=== PATIENT | male | born 1975 | race Caucasian/White ===

== ENCOUNTER 2024-04-01 16:14 | Emergency (ER) | payer OTHER, SELFPAY ==
[2024-04-01 16:32] VITALS: BP 153/85; PULSE 99; RESP 18; TEMP 36.8; O2SAT 97; BMI 34.5
--- OUTSIDE RECORDS SUMMARY | 2024-04-01 18:32 | XMS_ITS | Encounter Summary ---
[facility] Address [address] [address] Care Team Providers Care Bag Machine Helper Name Role Phone Unassigned, Provider Primary Care Provider Unava ilable Encounter Details Date Type Department Care Team (Latest Contact Info) Description 04/08/2018 Correspondence None No Primary/Referring, Phy OCC FORM Social History Tobacco Use Types Packs/Day Years Used Date Smoking Tobacco: Every Day Cigarettes Smokeless Tobacco: Never Alcohol Use Standard Drinks/Week Comments No 0 (1 standard drink = 0.6 oz pur e alcohol) Sex and Gender Information Value Date Recorded Sex Assigned at Not on file Gender Identity Not on file Sexual Orientation Not on file documented as of this encounter Plan of Treatment Not on file documented as of this encounter Visit Diagnoses Not on filedocumented in this encounter Care Teams Bag Machine Helper Relationship Specialty Start Date End Date Unassigned, Provider [address] [place] [address] PCP - General 09/22/02 documented as of this encounter
--- OUTSIDE RECORDS SUMMARY | 2024-04-01 18:32 | XMS_ITS | Encounter Summary ---
Author [facility] Address [address], [place] [address] Care Team Providers Care Store Director Name Role Phone Unassigned, Provider Primary Care Provider Unava ilable Encounter Details Date Type Department Care Team (Latest Contact Info) Description 04/08/2018 Correspondence [facility] [address] [place], [place] [address] [place] [address] Nubia Carreon MD INTIAL INJURY QUESTIONNAIRE Social History Tobacco Use Types Packs/Day Years [...] on filedocumented in this encounter Care Teams Store Director Relationship Specialty Start Date End Date Unassigned, Provider [address] [place] [address] PCP - General 09/22/02 documented as of this encounter
--- OUTSIDE RECORDS SUMMARY | 2024-04-01 18:32 | XMS_ITS | Referral Summary ---
Author Organization [facility] Address [address] [place] [address]. [place] [address] Care Team Providers Care Casino Surveillance Officer Name Role Phone No Ref-Primary, Physician Primary Care Provider Allergies No known active allergies Medications traMADol (ULTRAM) 50 mg tabletIndication s:Closed non-physeal fracture of phalanx of right great toe, unspecified phalanx, initial encounter [TRAMADOL (ULTRAM) 50 MG TABLET] Take 1 tablet (50 mg total) by mouth every 8 (eight) hours as needed for pain or severe pain (7-10). 8 tablet 0 9 Active fluticasone propionate (FLONASE) 50 mcg/actuation nasal sprayIndications :Ear fullness, left,Viral URI,Nasal congestion [FLUTICASONE PROPIONATE (FLONASE) 50 MCG/ACTUATION NASAL SPRAY] 1 spray into each nostril daily. 16 g 0 9 Active Active Problems Problem Noted Date Diagnosed Date Change in stool caliber 05/05/2022 Controlled type 2 diabetes m ellitus without complication, without long-term current use of insulin 04/11/2022 Mixed hyperlipidemia 04/11/2022 Inguinal hernia 10/30/2018 Family history of thoracic aortic aneurysm 08/30 Tobacco use 08/30/2017 Immunizations Name Administration Dates Next Due DT (PEDS <7y) 03/26/2003 Td,adult,historic,unspecified 03/26/2003 Social History Tobacco Use Types Packs/Day Years Used Date Smoking Tobacco: Every Day Smokeless Tobacco: Never Adolescent Education Answer Date Record ed Getting School Help Needed Not on file 12/16 Sex and Gender Information Value Date Recorded Sex Assigned at Not on file Legal Sex Male 3:47 PM CDT Gender Identity Not on file Sexual Orientation Not on file Last Filed Vital Signs Vital Sign Reading Time Taken Comments Blood Pressure 146/89 05/05/2022 12:22 PM TRIPPER Pulse 96 05/05/2022 12:22 PM TRIPPER Temperature 37.1 C (98.7 F) 05/05/2022 12:22 PM TRIPPER Respiratory Rate 14 05/05/2022 12:22 PM TRIPPER Oxygen Saturation 97% 05/05/2022 12:22 PM TRIPPER Inhaled Oxygen Concentration - - Weight 88 kg (194 lb 0.1 oz) 05/05/2022 12:22 PM TRIPPER Height 175.3 cm (5' 9) 10/13/2020 1:19 PM CDT Body Mass Index 28.65 10/13/2020 1:19 PM CDT Plan of Treatment Not on file Insurance [facility] [place]ADARRAMA [id number] [facility] [place] [id number] [facility] CLAIMS MANAGEMENT Care Teams Casino Surveillance Officer Relationship Specialty Start Date End Date No Ref-Primary, Physician PCP - General 10/13/20
--- OUTSIDE RECORDS SUMMARY | 2024-04-01 18:32 | XMS_ITS | Clinical Summary ---
Author Organization [facility] Address [address] [place] [address]. [place] [address] Care Team Providers Care Crop Production Advisor Name Role Phone No Ref-Primary, Physician Primary [...] Comments Blood Pressure 146/89 05/05/2022 12:22 PM RECREATION PROGRAM SPECIALIST Pulse 96 05/05/2022 12:22 PM RECREATION PROGRAM SPECIALIST Temperature 37.1 C (98.7 F) 05/05/2022 12:22 PM RECREATION PROGRAM SPECIALIST Respiratory Rate 14 05/05/2022 12:22 PM RECREATION PROGRAM SPECIALIST Oxygen Saturation 97% 05/05/2022 12:22 PM RECREATION PROGRAM SPECIALIST Inhaled Oxygen Concentration - - Weight 88 kg (194 lb 0.1 oz) 05/05/2022 12:22 PM RECREATION PROGRAM SPECIALIST Height 175.3 cm (5' 9) 10/13/2020 1:19 PM CDT Body Mass Index 28.65 10/13/2020 1:19 PM CDT Plan of Treatment Health Maintenance Due Date Last Done Comments A1C 1977 ADVANCE CARE PLANNING 1977 ANNUAL REVIEW OF HM ORDERS [address] COLONOGRAPHY 1977 DIABETIC FOOT EXAM 1977 EYE EXAM 1977 FIT 1977 FLEX SIG 1977 LIPID 1977 MICROALBUMIN 1977 sDNA (Cologuard) 1977 YEARLY PREVENTIVE VISIT 1980 COLONOSCOPY 06/01/1987 COLORECTAL CANCER SCREENING 06/01/1987 HIV SCREENING 1992 HEPATITIS C SCREENING 06/01/1995 HEPATITIS B IMMUNIZATION (1 of 3 - 19+ 3-dose series) 1996 Pneumococcal Vaccine: Pediatrics (0 to 5 Years) and At-Risk Patients (6 to 49 Years) (1 of 2 - PCV) 1996 COVID-19 Vaccine ( - 2023- season) 2023 INFLUENZA VACCINE (#1) 2023 PHQ-2 (once per calendar year) 2024 DTAP/TDAP/TD IMMUNIZATION (3 - Td or Tdap) 08/29/2027 08/28/2017, 03/26/2003, 03/26/2003, Additional history exists RSV VACCINE (1 - 1-dose 75+ series) 2052 HPV IMMUNIZATION Aged Out No longer e ligible based on patient's age to complete this topic MENINGITIS IMMUNIZATION Aged Out No l onger eligible based on patient's age to complete this topic RSV MONOCLONAL ANTIBODY Aged Out No l onger eligible based on patient's age to complete this topic Insurance [facility] [employer] Care Teams Crop Production Advisor Relationship Specialty Start Date End Date No Ref-Primary, Physician PCP - General 10/13/20
--- OUTSIDE RECORDS SUMMARY | 2024-04-01 18:32 | XMS_ITS | Encounter Summary ---
Author Organization [facility] Address [address], [place] [address] Care Team Providers Care Bingo Manager Name Role Phone Unassigned, Provider Primary Care Provider Unava ilable Encounter Details Date Type Department Care Team (Latest Contact Info) Description 04/22/2018 Correspondence [facility] [address] [place], [place] [id number] [place] [address] Nubia Carreon MD WORK HARDENING WORK CONDITIONING EVALUATION Social History Tobacco Use Types Packs/Day Years [...] on filedocumented in this encounter Care Teams Bingo Manager Relationship Specialty Start Date End Date Unassigned, Provider [address] [place] [address] PCP - General 09/22/02 documented as of this encounter
--- OUTSIDE RECORDS SUMMARY | 2024-04-01 18:32 | XMS_ITS | Clinical Summary ---
Author Organization [email or web address] Address [address], [place] [address] Care Team Providers Care Upper Cutter Name Role Phone Unassigned, Provider Primary Care Provider Unava ilable Source Comments You are receiving this document as you are listed as the primary care provider,follow-up provider, or the patient has been referred to you for consultation.This is in compliance with the Medicare and[facility] EHR Incentive Program,which states Providers who transition their patient to another setting of careor provider of care or refers their patient to another provider of care shouldprovide summary care record for each transition of care or referral. [email or web address] Allergies No known active allergies Medications Medication Sig Dispensed Refills Start Date End Date Status ibuprofen (MOTRIN) 200 MG tablet Take 200-400 mg by mouth every 4 hours as needed for Pain. Active Active Problems Problem Noted Date Diagnosed Date Tobacco use 08/30/2017 Family history of thoracic aortic aneurysm 08/30 Immunizations Name Administration Dates Next Due Td 03/25/2001 Varicella 09/22/2002(Deferred: Immune by Norma calderón) Family History Medical History Relation Name Comments Thoracic aortic aneurysm Father rup gwyne Diabetes, Type II Mother Thoracic aortic aneurysm Mother Cancer Brother 1 Suicide Brother 2 Coronary Artery Disease Sister 1 Cancer Sister 2 Relation Name Status Comments Father Mother Brother 1 Brother 2 Brother 3 Alive Brother 4 Alive Sister 1 Sister 2 Sister 3 Alive Sister 4 Alive Social History Tobacco Use Types Packs/Day Years Used Date Smoking Tobacco: Every Day Cigarettes Smokeless Tobacco: Never Tobacco Cessation:Counseling Given: Yes Alcohol Use Standard Drinks/Week Comments No 0 (1 standard drink = 0.6 oz pur e alcohol) Sex and Gender Information Value Date Recorded Sex Assigned at Not on file Gender Identity Not on file Sexual Orientation Not on file Last Filed Vital Signs Vital Sign Reading Time Taken Comments Blood Pressure 133/91 04/08/2018 3:30 PM CHILD WELFARE COUNSELOR Pulse 94 04/08/2018 3:30 PM CHILD WELFARE COUNSELOR Temperature 36.4 C (97.6 F) 08/30/2017 9:26 AM CDT Respiratory Rate 18 08/30/2017 9:26 AM CDT Oxygen Saturation 97% 10/06/2005 12:30 AM CDT Inhaled Oxygen Concentration - - Weight 93 kg (205 lb) 08/30/2017 9:26 AM CDT Height 174.6 cm (5' 8.75) 08/30/2017 9:26 AM CD T Body Mass Index 30.49 08/30/2017 9:26 AM CDT Plan of Treatment Health Maintenance Due Date Last Done Comments Colon Cancer Screening Plan Due 1977 Hep C Screening (Preventive Services) 1977 Pneumococcal (1 - PCV) 06/01/1983 HIV Screening (Preventive Services) 1993 Adult Preventive Visit 06/01/1995 HepB (1) 1996 Cholesterol 2012 COVID-19 Vaccine ( - 2023- season) 2023 Influenza (#1) 2023 Zoster/Shingles (1 of 2) 06/01/2027 DTaP/Tdap/Td (4 - Tdap) 08/29/2027 08/29/19 18, 03/26/2003, 03/26/2003, Additional history exists HepA Aged Out No longer eligi ble based on patient's age to complete this topic Hib Aged Out No longer eligi ble based on patient's age to complete this topic IPV (Polio) Aged Out No longer eligi ble based on patient's age to complete this topic MCV4 Aged Out No longer eligi ble based on patient's age to complete this topic Care Teams Upper Cutter Relationship Specialty Start Date End Date Unassigned, Provider [address] [place] [id number] PCP - General 09/22/02
--- OUTSIDE RECORDS SUMMARY | 2024-04-01 18:32 | XMS_ITS | Clinical Summary ---
Author Organization [facility] Address [place], [place] [address] Care Team Providers Care Auto Machinist Name Role Phone Bran Miller MD Primary Care Provider [phone] Ashley Gregorio PharmD Unavailable [phone] Allergies No known active allergies Medications * This document contains information received from the source organization and may not represent a complete record from that organization. aspirin (ECOTRIN) 81 mg enteric coated tabletIndications:T ype 2 diabetes mellitus without complication, without long-term current use of insulin (HC) Take 1 Tablet (81 mg) by mouth once daily with a meal. 90 Tablet 3 Active glyBURIDE (MICRONASE; DIABETA) 5 mg tabletIndications:T ype 2 diabetes mellitus without complication, without long-term current use of insulin (HC) Take 1 Tablet (5 mg) by mouth once daily before a meal. 90 Tablet 1 4 Active metFORMIN (GLUCOPHAGE) 1,000 mg tabletIndications:T ype 2 diabetes mellitus without complication, without long-term current use of insulin (HC) Take 1 Tablet (1,000 mg) by mouth two times daily with meals. 180 Tablet 1 4 Active simvastatin (ZOCOR) 20 mg tabletIndications:M ixed hyperlipidemia Take 1 Tablet (20 mg) by mouth at bedtime. 90 Tablet 1 4 Active Active Problems Problem Noted Date Diagnosed Date Mixed hyperlipidemia 04/11/2022 Controlled type 2 diabetes m ellitus without complication, without long-term current use of insulin 04/11/2022 Inguinal hernia 10/30/2018 Tobacco use 08/30/2017 Family history of thoracic aortic aneurysm 08/30 Change in stool caliber Encounters Date Type Department Care Team Description 04/01/2024 3:04 PM PROFESSOR OF MANAGEMENT - 04/01/2024 3:45 PM PROFESSOR OF MANAGEMENT Emergency [facility] [address] [place] [address] Henok Tom PA Type 2 diabetes mellitus without complication, without long-term current use of insulin (HC) (Primary Dx) Discharge Disposition: Home Self Care 04/01/2024 Travel from Last 3 Months Immunizations Name Administration Dates Next Due Td (Age >=7 Years) 03/26/2003,03/25/2001 Tdap 08/28/2017 Family History Medical History Relation Name Comments Good Health Brother 1 Depression Brother 2 Drug Abuse Brother 3 Good Health Daughter Coronary artery disease Father Diabetes Mother Obesity Mother Hypertension Sister 1 Hypertension Sister 2 Coronary artery disease Sister 3 Obesity Sister 3 Good Health Son 1 Good Health Son 2 Relation Name Status Comments Brother 1 Alive Brother 2 (Age 28) suicide Brother 3 (Age 65) infection Brother 4 Brother 5 Brother 6 Daughter Alive Father (Age 80) aneurysm o f the heart Mother (Age 65) Aortic rup ture Sister 1 Alive Sister 2 Alive Sister 3 (Age 56) heart issu es Son 1 Alive Son 2 Alive Social History Tobacco Use Types Packs/Day Years Used Date Smoking Tobacco: Every Day Cigarettes 1 20 Smokeless Tobacco: Never Tobacco Cessation:Ready to Q uit: No; Counseling Given: Yes Comments:Has an rx for welbutrin not ready to quit Alcohol Use Standard Drinks/Week Comments No 0 (1 standard drink = 0.6 oz pur e alcohol) [facility] Utilities Answer Date Recorded Do you have trouble paying f or utilities (for example, heat, electricity, water, phone)? Yes 11/19/2023 PHQ-2 Answer Date Recorded PHQ-2 TOTAL SCORE 0 11/19/2023 Financial Resource Strain Answer Date R ecorded Difficulty of Paying Living Expenses 2 11/12/2023 Difficulty of Paying Living Expenses Not on file 11/12/2023 Food Insecurity Answer Date Recorded Do you worry your food will run out before you are able to buy more? 1 11/19/2023 Transportation Needs Answer Date Record ed Does lack of transportation keep you from medica l appointments? 1 11/19/2023 Does lack of transportation keep you from work, meetings or getting things that you need? 1 11/19/2023 Housing Stability Answer Date Recorded What is your housing situation today? 1 11/19/2023 Interpersonal Safety Answer Date Record ed Are you being hit, kicked, p ushed or yelled at (see row info)? No 04/01/2024 Interpersonal Safety Abuse 12 - 18 Not on file 04/01/2024 Interpersonal Safety Ambulatory Vulnerability No t on file 04/01/2024 Sex and Gender Information Value Date Recorded Sex Assigned at Not on file Legal Sex Male 7:06 AM PROFESSOR OF MANAGEMENT Gender Identity Not on file Sexual Orientation Not on file Occupation Industry Job Start Date Job End Date delivery driver assistant for [employer] Not on file Not on file Not on file Obstetrics History Last Filed Vital Signs Vital Sign Reading Time Taken Comments Blood Pressure 147/88 04/01/2024 3:13 PM PROFESSOR OF MANAGEMENT Pulse 77 04/01/2024 3:13 PM PROFESSOR OF MANAGEMENT Temperature 36.3 C (97.4 F) 04/01/2024 3:13 PM PROFESSOR OF MANAGEMENT Respiratory Rate 18 04/01/2024 3:13 PM PROFESSOR OF MANAGEMENT Oxygen Saturation 99% 04/01/2024 3:13 PM PROFESSOR OF MANAGEMENT Inhaled Oxygen Concentration - - Weight 89.4 kg (197 lb) 11/04/2023 3:53 AM CDT Height 172.7 cm (5' 8) 11/04/2023 3:53 AM CDT Body Mass Index 29.95 11/04/2023 3:53 AM CDT Plan of Treatment Health Maintenance Due Date Last Done Comments Hepatitis B series for Diabe easton (1 of 3 - 19+ 3-dose series) 1996 Pneumococcal series for age 6-49 (1 of 2 - PCV) 1996 COVID-19 vaccine series ( season) 2023 Influenza for age 9-49 11/25/2023 BMI (ht and wt on same day) for age 18+ 08/27/2024 08/28/2023, 05/28/2023, 02/13/2023, Additional history exists Depression screening for age 12+ 11/18/2024 11/19/2023, 07/25/2022, 05/26/2021, Additional history exists Colonoscopy through age 75 08/18/2026 08/18/2021 Tetanus booster 08/29/2027 08/28/2017, 03/2003, 03/25/2001 Lipids for age 45-75 05/27/2028 05/28/2023, 11/21/2022, 04/13/2022, Additional history exists Tdap Completed 08/28/2017 HIV for age 15-65 Completed 04/13/2022 Hepatitis C screening for ag e 18-79 Completed 04/13/2022 Procedures Procedure Name Priority Date/Time Associated Diagnosis Comments GLUCOSE METER Routine 04/01/2024 3:32 PM PROFESSOR OF MANAGEMENT LIPID PANEL W REFLEX MEASURED LDL Routine 05/28/2023 9:42 AM PROFESSOR OF MANAGEMENT Mixed hyperlipidemia LC HIV-1/O/2, 4TH GENERATION Routine 04/13/2022 6:39 PM PROFESSOR OF MANAGEMENT Screening for HIV (human immunodeficiency virus) LC HCV ANTIBODY RFX TO QUANT PCR Routine 04/13/2022 6:39 PM PROFESSOR OF MANAGEMENT Need for hepatitis C screening test COLONOSCOPY 08/18/2021 8:38 AM CDT from Last 3 Months or Most Recently Relevant to Health Maintenance Results * (ABNORMAL) GLUCOSE METER (04/01/2024 3:32 PM PROFESSOR OF MANAGEMENT) GLUCOSE METER 135(H) 65 - 100 mg/dL 04/01/2024 3:35 PM PROFESS[address] OF [address]GEMENT [facility] Blood BLOOD SPECIMEN / Unknown 04/01/2024 3:32 PM PROFESSOR OF MANAGEMENT 04/01/2024 3:35 PM PROFESSOR OF MANAGEMENT us Henok [facility] CHEMISTRY Final Re sult [facility] [address] [place] [address] * (ABNORMAL) LIPID PANEL W REFLEX MEASURED LDL (05/28/2023 9:42 AM PROFESSOR OF MANAGEMENT) CHOLESTEROL,TOTAL 169 100 - 199 mg/dL 05/28/2023 10:13 AM [facility] Comment: Cholesterol, Total Reference Ranges Desirable <200 mg/dL Borderline 200-239 mg/dL High >=240 mg/dL TRIGLYCERIDES 154(H) <150 mg/dL 05/28/2023 10:13 AM [facility] HDL CHOLESTEROL 38(L) >40 mg/dL 10:13 AM [facility] NON-HDL CHOLESTEROL 131 <145 mg/dl 05/28/2023 10:13 AM [facility] CHOL/HDL RATIO 4.45 <4.50 05/28/2023 10:13 AM [facility] LDL CHOLESTEROL 100 <=130 mg/dL 05/28/2023 10:13 AM [facility] VLDL CHOLESTEROL 31(H) <=30 mg/dL 05/28/2023 10:13 AM [facility] PROVIDER ORDERED STATUS RANDOM 05/28/2023 10:13 AM [facility] Blood BLOOD SPECIMEN / Unknown Venipuncture / Unknown 05/28/2023 9:42 AM PROFESSOR OF MANAGEMENT 05/28/2023 9:42 AM PROFESSOR OF MANAGEMENT rBan Miller MD CHEMISTRY Final Resul t [facility] [address] [place] [address] * LC HCV ANTIBODY RFX TO QUANT PCR (04/13/2022 6:39 PM PROFESSOR OF MANAGEMENT) Pathologist [facility] HCV Ab <0.1 0.0 - 0.9 s/co ratio 04/18/2022 10:06 PM PROFESSOR OF MANAGEMENT [facility] Blood BLOOD SPECIMEN / Unknown Venipuncture / Unknown 04/13/2022 6:39 PM PROFESSOR OF MANAGEMENT 04/13/2022 6:41 PM PROFESSOR OF MANAGEMENT Narrative [facility]) - 04/18/2022 10:06 PM PROFESSOR OF MANAGEMENT Performed at: [address] [id number] Elastic Tape Inserter: Karl Rdz MD, Phone: [phone] Jung [facility] Fin al Result Performing Organization Address City/[facility] Co de Phone Number [facility] ([facility]) [address] [place] [address], * LC HIV-1/O/2, 4TH GENERATION (04/13/2022 6:39 PM PROFESSOR OF MANAGEMENT) [facility] HIV Scr 4th Gen Non Reactive Non Reactive 04/19/2022 10:06 PM PROFESSOR OF MANAGEMENT [facility] ([facility]) Comment: HIV Negative HIV-1/HIV-2 antibodies and HIV-1 p24 antigen were NOT detected. There is no laboratory evidence of HIV infection. Blood BLOOD SPECIMEN / Unknown Venipuncture / Unknown 04/13/2022 6:39 PM PROFESSOR OF MANAGEMENT 04/13/2022 6:41 PM PROFESSOR OF MANAGEMENT Narrative [facility] ([facility]) - 04/19/2022 10:06 PM PROFESSOR OF MANAGEMENT Performed at: [address] [place] [id number] Elastic Tape Inserter: Karl Rdz MD, Phone: [phone] Jung [facility] Fin al Result Performing Organization Address [facility] Co de Phone Number [facility] ([facility]) [address] [place] [address], [place] * COLONOSCOPY (08/18/2021 8:38 AM CDT) 08/18/2021 8:38 AM CDT Narrative Transcriptions Yordy Taylor MD - 08/18/2021 9:47 AM CDT Patient Name: Srinivasan Solis Procedure Date: 08/18/2021 Gender: Male Date of : 1975 Admit Type: Ambulatory Procedure: Colonoscopy Proceduralist: Yordy Andrew Indications/Pre-Op Diagnosis: Change in stool caliber Medications: Midazolam 6 mg IV, Fentanyl 100 microgramsIV Procedure Description: The patient had risks, benefits and alternatives explained to andgave informed consent. The patient had a stable cardiopulmonary status and judged an adequate candidate for conscious sedation. The colonoscope was passed through the anus and advanced to thececum, identified by appendiceal orifice and ileocecal valve. Thecolonoscopy was performed without difficulty. The patient tolerated the procedure well. The quality of the bowel preparation was good. The ileocecal valve, appendiceal orifice, and rectum were photographed. Complications: No immediate complications. Estimated Blood Loss & Specimen: Estimated blood loss: none. Specimen collected - Yes and sent to Laboratory Findings: The perianal and digital rectal examinations were normal. An 8 mm polyp was found in the proximal ascending colon. The polypwas sessile. The polyp was removed with a hot snare. Resection andretrieval were complete. The retroflexed view of the distal rectum and anal verge was normaland showed no anal or rectal abnormalities. Impressions/Post-Op Diagnosis: - One 8 mm polyp in the proximal ascending colon, removed with a hot snare. Resected and retrieved. Recommendation: - Discharge patient to home. - Resume previous diet. - Continue present medications. - Await pathology results. - Repeat colonoscopy in 5-10 years for surveillance. - Use Citrucel one tablespoon PO BID. Moderate Sedation: Moderate (conscious) sedation was administered by the endoscopy nurse and supervised by the endoscopist. [Parameters Monitored]. [Sedation Duration Time]. Moderate (conscious) sedation was administered by the endoscopy nurse and supervised by the endoscopist. The patient's oxygen saturation, heart rate, blood pressure and response to care were monitored. Total physician intraservice time was 28 minutes. Yordy Taylor, 08/18/2021 9:46:49 AM This report has been signed electronically. Note Initiated On: 08/18/2021 8:38 AM Yordy Taylor MD PROCEDURE ORD Final Res ult from Last 3 Months or Most Recently Relevant to Health Maintenance Insurance [place] [id number] [employer] [place] [id number] [facility] Advance Directives * Full Code (Latest Code Status on File) Date Activated Date Inactivated Comments 08/18/2021 7:48 AM 08/18/2021 12:40 PM Question Answer Comments Code Status Discussion: Per Existing Order * Full Code Date Activated Date Inactivated Comments 08/31/2017 7:47 AM 08/31/2017 1:15 PM Question Answer Comments Code Status Discussion: Not Discussed Care Teams Auto Machinist Relationship Specialty Start Date End Date Bran Miller MD [address] [facility] [place] [address] PCP - General Family Practice 11/21/22 Ashley Gregorio PharmD [address] [facility] [place] [address] Pharmacist Medication Management Pharmacology 11/19/23 11/18/26 TY [id number] [place] [address] TY ([employer]) 05/24/23
--- OUTSIDE RECORDS SUMMARY | 2024-04-01 18:32 | XMS_ITS | Encounter Summary ---
Author Organization [facility] Address [address], [place] [address] Care Team Providers Care Rn Pool Name Role Phone Unassigned, Provider Primary Care Provider Unava ilable Encounter Details Date Type Department Care Team (Late st Contact Info) Description 04/22/2018 Correspondence None No Primary/Referring, Phy PHYSCIAL THERAPY SUPPLY PURCHASE FORM Social History Tobacco Use Types Packs/Day [...] on filedocumented in this encounter Care Teams Rn Pool Relationship Specialty Start Date End Date Unassigned, Provider [address] [place] [address] PCP - General 09/22/02 documented as of this encounter
--- OUTSIDE RECORDS SUMMARY | 2024-04-01 18:32 | XMS_ITS | Encounter Summary ---
[facility] Address [address], [place] [address] Care Team Providers Care Club Former Name Role Phone Unassigned, Provider Primary Care Provider Unava ilable Encounter Details Date Type Department Care Team (Latest Contact Info) Description 04/08/2018 Correspondence None No Primary/Referring, Phy OCC MED NOTES Social History Tobacco Use Types Packs/Day Years [...] on filedocumented in this encounter Care Teams Club Former Relationship Specialty Start Date End Date Unassigned, Provider [address] [place] [address] PCP - General 09/22/02 documented as of this encounter
== END 2024-04-01 17:23 | disposition left against medical advice (07) ==
LOC: ED 18:30
DX: Z53.21 Procedure and treatment not carried out due to patient leaving prior to being seen by health care provider (principal)